=== PATIENT | female | born 1960 | race African-American/Black ===

== ENCOUNTER 2016-08-30 05:37 | Emergency (ER) | payer OTHER ==
[~2016-08-30] VITALS: Ht 170.2 cm; Wt 75.0 kg
[~2016-08-30 05:37] MED LIST: AMIT25TA20 PO; SERO400T PO
[2016-08-30 05:42] VITALS: BP 179/106; PULSE 89; RESP 18; TEMP 98.5; O2SAT 99
[2016-08-30] MEDS ORDERED: SERO400T PO (06:01)
[2016-08-30] MEDS ORDERED: AMIT25TA9 PO (06:01)
--- NOTE | 2016-08-30 06:02 | PD ---
HPI Chief Complaint: Complaint Time Seen by Provider: 05:55 Travel History International Travel<30 days: No Contact w/Intl Traveler<30days: No Traveled to known affect area: No History of Present Illness HPI This is a 56-year-old female who presents to the emergency department with lower abdominal discomfort that started around 6 PM last night, constant, severe. She also feels like she can't urinate. She's vomited once. She does feel little bit feverish. She never had pain like this before. in the past but no other abdominal surgeries. PFSH Past Medical History Anxiety: Yes Depression: Yes Diminished Hearing: No Hypertension: Yes Musculoskeletal: Yes (chronic back pain) Neurologic: Yes (neuropathy) Respiratory: Yes Tetanus Vaccination: Unknown Influenza Vaccination: No Menopausal: Yes : 3 Para: 2 : 1 Past Surgical History Section: Yes Gynecologic Surgery: Yes () Social History Alcohol Use: No (DENIES) Tobacco Use: No (DENIES) Substance Use: No (HX, DENIES CURRENT) Allergies-Medications (Allergen,Severity, Reaction): Coded Allergies: No Known Allergies (Verified , 08/30/16) Reported Meds & Prescriptions Reported Meds & Active Scripts Active Reported Amitriptyline (Amitriptyline HCl) 25 Mg Tab 25 Mg PO BID Seroquel (Quetiapine Fumarate) 400 Mg Tab 400 Mg PO HS Review of Systems Except as stated in HPI: all other systems reviewed are Neg Physical Exam Narrative GENERAL:Well appearing, no acute distress SKIN: Focused skin assessment warm and dry. HEAD: Atraumatic. Normocephalic. EYES: Pupils equal and round. No injection or drainage. ENT: Moist mucous membranes NECK: Trachea midline. CARDIOVASCULAR: Regular rate and rhythm. No murmur appreciated. RESPIRATORY: Clear to auscultation. Breath sounds equal bilaterally. GASTROINTESTINAL: Abdomen soft, distended, firm and tender in the suprapubic region with some guarding. Normal rectal tone. MUSCULOSKELETAL: No obvious deformities. NEUROLOGICAL: Awake and alert. No obvious cranial nerve deficits. Moving all extremities. PSYCHIATRIC: Argumentative and intermittently agitated Data Data Last Documented VS Vital Signs Date Time Temp Pulse Resp B/P Pulse Ox O2 Delivery O2 Flow Rate FiO2 08/30/16 05:42 98.5 89 18 179/106 99 Room Air Orders Urinalysis - C+S If Indicated (08/30/16 05:55) Complete Blood Count With Diff (08/30/16 06:01) Comprehensive Metabolic Panel (08/30/16 06:01) ^ Insert Iv (08/30/16 06:01) Urinary Catheter Insert/Apply (08/30/16 06:35) Ct Abd/Pel W Iv Contrast(Rout) (08/30/16 ) Labs Laboratory Tests Test 08/30/16 06:05 White Blood Count 8.9 TH/MM3 Red Blood Count 4.33 MIL/MM3 Hemoglobin 14.1 GM/DL Hematocrit 41.3 % Mean Corpuscular Volume 95.3 FL Mean Corpuscular Hemoglobin 32.4 PG Mean Corpuscular Hemoglobin 34.0 % Concent Red Cell Distribution Width 13.8 % Platelet Count 350 TH/MM3 Mean Platelet Volume 7.6 FL Neutrophils (%) (Auto) 85.1 % Lymphocytes (%) (Auto) 11.0 % Monocytes (%) (Auto) 3.2 % Eosinophils (%) (Auto) 0.2 % Basophils (%) (Auto) 0.5 % Neutrophils # (Auto) 7.5 TH/MM3 Lymphocytes # (Auto) 1.0 TH/MM3 Monocytes # (Auto) 0.3 TH/MM3 Eosinophils # (Auto) 0.0 TH/MM3 Basophils # (Auto) 0.0 TH/MM3 CBC Comment DIFF FINAL Differential Comment Urine Color LIGHT-YELLOW Urine Turbidity CLEAR Urine pH 6.0 Urine Specific [place] 1.005 Urine Protein NEG mg/dL Urine Glucose (UA) NEG mg/dL Urine Ketones NEG mg/dL Urine Occult Blood NEG Urine Nitrite NEG Urine Bilirubin NEG Urine Urobilinogen LESS THAN 2.0 MG/DL Urine Leukocyte Esterase NEG Urine RBC 1 /hpf Urine WBC LESS THAN 1 /hpf Microscopic Urinalysis Comment CULT NOT INDICATED Sodium Level 138 MEQ/L Potassium Level 3.1 MEQ/L Chloride Level 102 MEQ/L Carbon Dioxide Level 29.2 MEQ/L Anion Gap 7 MEQ/L Blood Urea Nitrogen 8 MG/DL Creatinine 0.85 MG/DL Estimat Glomerular Filtration 83 ML/MIN Rate Random Glucose 139 MG/DL Calcium Level 9.0 MG/DL Total Bilirubin 0.3 MG/DL Aspartate Amino Transf 24 U/L (AST/SGOT) Alanine Aminotransferase 28 U/L (ALT/SGPT) Alkaline Phosphatase 98 U/L Total Protein 7.7 GM/DL Albumin 4.1 GM/DL MDM Medical Decision Making Medical Screen Exam Complete: Yes Emergency Medical Condition: Yes Interpretation(s) Afebrile, no tachycardia, hypertensive No leukocytosis Mild hypokalemia Urinalysis negative for infection Differential Diagnosis Acute urinary retention, cauda equina syndrome, bladder mass, pelvic mass Narrative Course This is a 56-year-old female who presents the emergency department with acute urinary retention. A Pelaez catheter was placed and she put out 1.2 L of urine. Labs are obtained which were reassuring. I performed a rectal exam which demonstrated normal rectal tone and she has a normal neurologic exam and no neurologic symptoms I doubt this is related to her spinal cord or a cauda equina syndrome. A CT abdomen and pelvis will be obtained if this is normal I think she can follow up with urology as an outpatient. Gosia Paez MD Aug 30, 2016 06:02
[2016-08-30 06:22] LABS: AUTOMATED NEUTROPHIL # 7.5 TH/MM3 (1.8-7.7); BASOPHIL % 0.5 % (0.0-2.0); EOSINOPHIL % 0.2 % (0.0-4.0); HEMATOCRIT 41.3 % (35.0-46.0); HEMO FLAGS DIFF FINAL; MEAN CELL VOLUME 95.3 FL (80.0-100.0); MEAN CORPUSCULAR HEMOGLOBIN 32.4 PG (27.0-34.0); MONO % 3.2 % (0.0-8.0); NEUT % 85.1 % (16.0-70.0); PLATELET COUNT 350 TH/MM3 (150-450); RED BLOOD COUNT 4.33 MIL/MM3 (4.00-5.30); RED CELL DISTRIBUTION WIDTH 13.8 % (11.6-17.2); WHITE BLOOD COUNT 8.9 TH/MM3 (4.0-11.0)
[2016-08-30 06:35] LABS: BLOOD, URINE NEG (NEG); GLUCOSE,URINE NEG (NEG); KETONE, URINE NEG (NEG); NITRITE,URINE NEG (NEG); URINE COLOR LIGHT-YELLOW (YELLW/STRAW)
[2016-08-30 06:37] LABS: COMMENT (UR) CULT NOT INDICATED; CULTURE IF INDICATED CULT NOT INDICATED
[2016-08-30 06:49] LABS: ALT (GPT) 28 U/L (10-53); ANION GAP 7 MEQ/L (5-15); AST (GOT) 24 U/L (15-37); BICARBONATE 29.2 MEQ/L (21.0-32.0); BLOOD UREA NITROGEN 8 MG/DL (7-18); CHLORIDE 102 MEQ/L (98-107); GLOMERULAR FILTRATION RATE 83 ML/MIN (>89); POTASSIUM 3.1 MEQ/L (3.5-5.1); SODIUM (NA) 138 MEQ/L (136-145)
[2016-08-30 06:52] LABS: ALKALINE PHOSPHATASE 98 U/L (45-117); TOTAL BILIRUBIN ADULT 0.3 MG/DL (0.2-1.0)
[2016-08-30 07:00] VITALS: BP 176/92; PULSE 84; RESP 16; O2SAT 98
[2016-08-30] MEDS ORDERED: IOHEXOL 350 MG/ML 10 ML VIAL (for RAD DIAG) IV ONE (08:50)
[2016-08-30 09:00] VITALS: BP 180/92; PULSE 82; RESP 16; O2SAT 100
--- NOTE | 2016-08-30 09:25 | RADRPT ---
EXAM DATE/TIME: 08/30/2016 08:45 [facility] COMPARISON: No previous studies available for comparison. INDICATIONS : Abdominal pain, painful urnation. IV CONTRAST: 95 cc Omnipaque 350 (iohexol) IV ORAL CONTRAST: No oral contrast ingested. RADIATION DOSE: 4.78 CTDIvol (mGy) MEDICAL HISTORY : Hypertension. SURGICAL HISTORY : section. ENCOUNTER: Initial ACUITY: 1 day PAIN SCALE: 5/10 LOCATION: Bilateral lower quadrant abdomen TECHNIQUE: Volumetric scanning of the abdomen and pelvis was performed. Using automated exposure control and ad justment of the mA and/or kV according to patient size, radiation dose was kept as low as reasonably achievable to obtain optimal diagnostic quality images. FINDINGS: LOWER LUNGS: Scattered fibrotic scarring is noted within the lung bases. LIVER: Homogeneous density without lesion. There is no dilation of the biliary tree. No calcified gallston es. SPLEEN: Normal size without lesion. PANCREAS: Within normal limits. KIDNEYS: Normal in size and shape. There is no mass, stone or hydronephrosis. ADRENAL GLANDS: Within normal limits. VASCULAR: There is no aortic aneurysm. BOWEL/MESENTERY: Scattered uncomplicated colonic diverticulosis is noted. No bowel obstruction is noted. ABDOMINAL WALL: Within normal limits. RETROPERITONEUM: There is no lymphadenopathy. BLADDER: Pelaez catheter is noted within the urinary bladder which is nondistended. REPRODUCTIVE: Within normal limits. INGUINAL: There is no lymphadenopathy or hernia. MUSCULOSKELETAL: Mild degenerative changes and scoliosis of the thoraco-lumbar spine are noted. CONCLUSION: 1. Scattered uncomplicated colonic diverticulosis. 2. Degenerative changes and mild scoliosis of the thoracolumbar spine. 3. Scattered fibrotic scarring within the lung bases. Jamie Wilcox MD on August 30, 2016 at 9:20 Board Certified Radiologist. This report was verified electronically.
--- NOTE | 2016-08-30 09:36 | PD ---
Physical Exam Date Seen by Provider: Aug 30, 2016 Time Seen by Provider: 07:00 Narrative Patient initially seen and evaluated by Dr. Paez, please see previous notes for further details. Awaiting CAT scan for disposition. Patient apparently is neurologically intact with no signs of bowel dysfunction, no saddle anesthesia normal rectal tone according to Dr. Paez's exam. Laboratory Tests Test 08/30/16 06:05 Neutrophils (%) (Auto) 85.1 % (16.0-70.0) Potassium Level 3.1 MEQ/L (3.5-5.1) Estimat Glomerular Filtration 83 ML/MIN (>89) Rate Random Glucose 139 MG/DL (74-106) Last 24 hours Impressions Abdomen/Pelvis CT 08/30/16 0000 Signed Impressions: Service Date/Time: Tuesday, August 30, 2016 08:45 - CONCLUSION: 1. Scattered uncomplicated colonic diverticulosis. 2. Degenerative changes and mild scoliosis of the thoracolumbar spine. 3. Scattered fibrotic scarring within the lung bases. Jamie Wilcox MD CAT scan did not reveal any signs of acute processes. At this point, my plan would be to release the patient would follow-up to primary care physician. Keep the Pelaez catheter in with a leg bag. Follow-up with urology. Return for any worsening in symptoms as needed. The plan has been discussed with her and she states understanding. Data Data Last Documented VS Vital Signs Date Time Temp Pulse Resp B/P Pulse Ox O2 Delivery O2 Flow Rate FiO2 08/30/16 05:42 98.5 89 18 179/106 99 Room Air Orders Urinalysis - C+S If Indicated (08/30/16 05:55) Complete Blood Count With Diff (08/30/16 06:01) Comprehensive Metabolic Panel (08/30/16 06:01) ^ Insert Iv (08/30/16 06:01) Urinary Catheter Insert/Apply (08/30/16 06:35) Ct Abd/Pel W Iv Contrast(Rout) (08/30/16 ) Iohexol 350 Inj (Omnipaque 350 Inj) (08/30/16 08:50) Labs Laboratory Tests Test 08/30/16 06:05 White Blood Count 8.9 TH/MM3 Red Blood Count 4.33 MIL/MM3 Hemoglobin 14.1 GM/DL Hematocrit 41.3 % Mean Corpuscular Volume 95.3 FL Mean Corpuscular Hemoglobin 32.4 PG Mean Corpuscular Hemoglobin 34.0 % Concent Red Cell Distribution Width 13.8 % Platelet Count 350 TH/MM3 Mean Platelet Volume 7.6 FL Neutrophils (%) (Auto) 85.1 % Lymphocytes (%) (Auto) 11.0 % Monocytes (%) (Auto) 3.2 % Eosinophils (%) (Auto) 0.2 % Basophils (%) (Auto) 0.5 % Neutrophils # (Auto) 7.5 TH/MM3 Lymphocytes # (Auto) 1.0 TH/MM3 Monocytes # (Auto) 0.3 TH/MM3 Eosinophils # (Auto) 0.0 TH/MM3 Basophils # (Auto) 0.0 TH/MM3 CBC Comment DIFF FINAL Differential Comment Urine Color LIGHT-YELLOW Urine Turbidity CLEAR Urine pH 6.0 Urine Specific [place] 1.005 Urine Protein NEG mg/dL Urine Glucose (UA) NEG mg/dL Urine Ketones NEG mg/dL Urine Occult Blood NEG Urine Nitrite NEG Urine Bilirubin NEG Urine Urobilinogen LESS THAN 2.0 MG/DL Urine Leukocyte Esterase NEG Urine RBC 1 /hpf Urine WBC LESS THAN 1 /hpf Microscopic Urinalysis Comment CULT NOT INDICATED Sodium Level 138 MEQ/L Potassium Level 3.1 MEQ/L Chloride Level 102 MEQ/L Carbon Dioxide Level 29.2 MEQ/L Anion Gap 7 MEQ/L Blood Urea Nitrogen 8 MG/DL Creatinine 0.85 MG/DL Estimat Glomerular Filtration 83 ML/MIN Rate Random Glucose 139 MG/DL Calcium Level 9.0 MG/DL Total Bilirubin 0.3 MG/DL Aspartate Amino Transf 24 U/L (AST/SGOT) Alanine Aminotransferase 28 U/L (ALT/SGPT) Alkaline Phosphatase 98 U/L Total Protein 7.7 GM/DL Albumin 4.1 GM/DL [facility] Medical Record Reviewed: Yes Supervised Visit with BG: No Diagnosis Primary Impression: Urinary retention Disposition: 01 DISCHARGE HOME Condition: Stable Ruben Huertas MD Aug 30, 2016 09:35
== END 2016-08-30 10:02 | disposition home or self-care (01) ==
LOC: NEPE 05:37
DX: R33.9 Retention of urine, unspecified (principal); K57.30 Diverticulosis of large intestine without perforation or abscess without bleeding; I10 Essential (primary) hypertension
CPT/HCPCS: 51702; 74177; 80053; 81001; 85025; 99285; Q9967

== ENCOUNTER 2016-09-02 09:39 | Emergency (ER) | payer OTHER ==
[~2016-09-02] VITALS: Ht 162.6 cm; Wt 55.0 kg
[~2016-09-02 09:39] MED LIST changes: -AMIT25TA20 PO; +AMIT25TA9 PO
[2016-09-02 09:44] VITALS: BP 178/104; PULSE 87; RESP 17; TEMP 98.2; O2SAT 99
[2016-09-02] MEDS ORDERED: ALBU0.63 NEB (10:39)
--- NOTE | 2016-09-02 11:21 | PD ---
HPI Chief Complaint: Complaint Time Seen by Provider: 11:07 Travel History International Travel<30 days: No Contact w/Intl Traveler<30days: No Traveled to known affect area: No History of Present Illness HPI 56yo M presents to the ED requesting removal of her vásquez catheter. Pt was seen at [facility] on 08/20/16 for urinary retention and vásquez was placed. However, she never followed up with urology as outpatient. Denies any fever, chest pain , sob, n/v, abdominal pain, focal weakness or numbness. PFSH Past Medical History Anxiety: Yes Depression: Yes Diminished Hearing: No Hypertension: Yes Musculoskeletal: Yes (chronic back pain) Neurologic: Yes (neuropathy) Respiratory: Yes (emphysema ) Tetanus Vaccination: < 5 Years Influenza Vaccination: No Menopausal: Yes : 3 Para: 2 : 1 Past Surgical History Section: Yes Gynecologic Surgery: Yes () Other Surgery: Yes (colon polys removed ) Social History Alcohol Use: No (DENIES) Tobacco Use: No (quit 3 years ago ) Substance Use: No (HX, DENIES CURRENT) Allergies-Medications (Allergen,Severity, Reaction): Coded Allergies: No Known Allergies (Verified , 09/02/16) Reported Meds & Prescriptions Reported Meds & Active Scripts Active Reported Albuterol Neb (Albuterol Sulfate) 0.63 Mg/3 Ml Neb 0.63 Mg NEB PRN Amitriptyline (Amitriptyline HCl) 25 Mg Tab 25 Mg PO HS Seroquel (Quetiapine Fumarate) 400 Mg Tab 400 Mg PO HS Review of Systems Except as stated in HPI: all other systems reviewed are Neg Physical Exam Narrative GENERAL: 56yo F not in distress. SKIN: Focused skin assessment warm/dry. HEAD: Atraumatic. Normocephalic. CARDIOVASCULAR: Regular rate and rhythm. No murmur appreciated. RESPIRATORY: No accessory muscle use. Clear to auscultation. Breath sounds equal bilaterally. GASTROINTESTINAL: Abdomen soft, non-tender, nondistended. No rebound tenderness or guarding. MUSCULOSKELETAL: No obvious deformities. No clubbing. No cyanosis. No edema. NEUROLOGICAL: Awake and alert. No obvious cranial nerve deficits. Motor grossly within normal limits. Normal speech. PSYCHIATRIC: Appropriate mood and affect; insight and judgment normal. Data Data Last Documented VS Vital Signs Date Time Temp Pulse Resp B/P Pulse Ox O2 Delivery O2 Flow Rate FiO2 09/02/16 14:54 82 16 165/82 99 Room Air 09/02/16 09:44 98.2 Orders Remove Urinary Catheter .ONCE (09/02/16 11:15) Urinary Catheter Management [id number] (09/02/16 12:17) Urinary Catheter Insert/Apply (09/02/16 12:39) MDM Medical Decision Making Medical Screen Exam Complete: Yes Emergency Medical Condition: Yes Differential Diagnosis Urinary retention Narrative Course 56yo F presents to the ED requesting removal of her vásquez. She did not follow up with urology. Pt is well appearing and abdomen is soft, NT/ND. Denies any other complaints other than that the vásquez was uncomfortable and wants it out. I explained to patient that if she is unable to urinate after vásquez removal, she will need it replaced and follow up with urology. Pt was not able to urinate after vásquez removal but does not want vásquez replaced. 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 I instructed her to follow up with urology in 1-2 days and she will be given material for self cath. Pt changed her mind and wanted an urinary catheter placed. Vásquez placed and pt discharge with strict urology follow up instructions. Diagnosis Primary Impression: Urinary retention Referrals: Aaron Tyson MD 1 day Urinary retention. Patient Instructions: General Instructions Departure Forms: Tests/Procedures Additional Instructions: Please follow up with urology clinic today. Return to the ED if symptoms worsen. Med/Other Pt SpecificInfo: Prescription(s) given Disposition: 01 DISCHARGE HOME Condition: Stable Aiyana Jameson DO Sep 02, 2016 11:21
[2016-09-02 14:54] VITALS: BP 165/82; PULSE 82; RESP 16; O2SAT 99
== END 2016-09-02 14:54 | disposition home or self-care (01) ==
LOC: NEPC 09:39
DX: Z46.6 Encounter for fitting and adjustment of urinary device (principal); R33.9 Retention of urine, unspecified; I10 Essential (primary) hypertension; J43.9 Emphysema, unspecified
CPT/HCPCS: 51702